=== PATIENT | male | born 1950 | race Caucasian/White ===

== ENCOUNTER 2017-09-02 11:48 | Observation (INO) | payer OTHER, BC ==
[~2017-09-02] VITALS: Ht 180.3 cm; Wt 108.3 kg
[2017-09-02 12:26] LABS: BASOPHIL (%) 0.3 % (0-1); EOSINOPHIL (%) 1.9 % (0-5); EOSINOPHIL COUNT 0.1 K/uL (0-0.3); HEMATOCRIT 51.2 % (38.0-50.0); HEMOGLOBIN 17.3 G/DL (12.5-16.6); IMMATURE GRANULOCYTE (%) 0.1 % (0.0-0.7); LYMPHOCYTE COUNT 2.7 K/uL (1.0-2.8); MCH 29.7 PG (29.0-34.0); MCHC 33.8 G/DL (30.0-36.0); MCV 87.8 FL (86-99); MONOCYTE (%) 10.7 % (3-12); MONOCYTE COUNT 0.8 K/uL (0-0.8); NEUTROPHIL COUNT 3.5 K/uL (1.8-6.4); PLATELET COUNT 193 K/uL (156-360); RBC DIS.WIDTH-CV 13.2 % (11.8-14.6); RBC DIS.WIDTH-SD 42.1 % (39-53); RED BLOOD COUNT 5.83 M/uL (4.00-5.50); WHITE BLOOD COUNT 7.2 K/uL (4.1-10.2)
[2017-09-02 12:42] LABS: CHLORIDE 108 mEq/L (99-109); POTASSIUM 4.2 mEq/L (3.7-5.4); SODIUM 139 mEq/L (136-147)
[2017-09-02 12:44] LABS: GLUCOSE 126 mg/dL (70-99)
[2017-09-02 12:48] LABS: GFR ESTIMATE (CALCULATED) > 59 mL/min/ (58.99-99999)
[2017-09-02 12:49] LABS: UREA NITROGEN (BUN) 12 mg/dL (9-23)
[2017-09-02 12:55] LABS: TROP-I INTERPRETATION NEGATIVE; TROPONIN-I 0.02 ng/mL (0.0-0.30)
[2017-09-02] MEDS ORDERED: ROSUVASTATIN CA10 MG PO (14:41)
[2017-09-02] MEDS ORDERED: COSOPT EYE DROP10 ML BOTH EYES (14:41)
[2017-09-02] MEDS ORDERED: ZOLOFT25 MG PO (14:41)
[2017-09-02] MEDS ORDERED: MULTIVITAMIN1 EAC2 PO (14:42)
[2017-09-02] MEDS ORDERED: LATANOPROST2.5 ML BOTH EYES (14:42)
[2017-09-02] MEDS ORDERED: AMBIEN10 MG PO (14:42)
[2017-09-02 15:28] LABS: HDL CHOLESTEROL 36 MG/DL (Desirable>=40); LDL CHOLESTEROL 51 mg/dL (Desirable<100); NON-HDL CHOLESTEROL 111 mg/dL (Desirable<160); TOTAL CHOLESTEROL 147 mg/dL (Desirable<200); TRIGLYCERIDES 301 MG/DL (Normal: <150)
[2017-09-02 15:53] VITALS: BP 155/74
[2017-09-02 17:07] VITALS: BP 145/65
[2017-09-02 19:40] VITALS: BP 151/70
[2017-09-03] VITALS: BP 142/70
[2017-09-03 04:00] VITALS: BP 138/67
[2017-09-03 07:08] VITALS: BP 168/81
[2017-09-03] MEDS ORDERED: AMLODIPINE BESYL5 MG PO (10:28)
[2017-09-03] MEDS ORDERED: ASPIR-LOW81 MG PO (10:28)
[2017-09-04 10:19] LABS: HEMOGLOBIN A1c (GLYCOHEMOGLOB) 5.8 % (Below 5.7)
== END 2017-09-03 12:14 | disposition home or self-care (01) ==
LOC: EME 11:48 → 4SOUTH 13:35 → EDOF 13:35 → ENRESERV 13:42 → 4SOUTH 15:38
PROVIDERS: Emergency Medicine; Hospitalist
DX: G45.9 Transient cerebral ischemic attack, unspecified (principal); I10 Essential (primary) hypertension; E78.5 Hyperlipidemia, unspecified; R73.03 Prediabetes; R73.9 Hyperglycemia, unspecified; Z85.828 Personal history of other malignant neoplasm of skin; Z82.49 Family history of ischemic heart disease and other diseases of the circulatory system; Z79.82 Long term (current) use of aspirin
CPT/HCPCS: 70450; 70551; 71045; 80048; 80061; 82948; 83036; 84443; 84484; 85025; 85610; 85730; 93005; 93880; 99281; 99285; G0378; J7030